=== PATIENT | male | born 1995 | race Two or more races ===

== ENCOUNTER 2019-01-01 16:03 | Emergency (ER) | payer OTHER ==
[~2019-01-01] VITALS: Ht 167.6 cm; Wt 86.2 kg
[2019-01-01 16:47] VITALS: BP 138/75
[2019-01-01] MEDS ORDERED: hydrOXYzine 25 MG TAB or CAP PO ONE (21:15)
== END 2019-01-01 22:30 | disposition home or self-care (01) ==
LOC: ER 16:06
DX: F41.9 Anxiety disorder, unspecified (principal); J35.1 Hypertrophy of tonsils
CPT/HCPCS: 70490